=== PATIENT | female | born 1970 | race Caucasian/White ===

== ENCOUNTER 2018-01-09 17:28 | Emergency (ER) | payer SELFPAY ==
[~2018-01-09] VITALS: Ht 175.3 cm; Wt 84.1 kg
[~2018-01-09 17:28] MED LIST: ALBU6.7H
[2018-01-09] MEDS ORDERED: TAMO10 PO (17:43)
[2018-01-09] MEDS ORDERED: CLON0.5T12 PO (17:43)
[2018-01-09] MEDS ORDERED: LORazepam 2 MG/ML VIAL IVP ONE (18:30)
[2018-01-09 18:35] LABS: BASOPHILS % (AUTO) 0.3 % (0.0-2.0); EOSINOPHILS % (AUTO) 6.3 % (1.0-6.0); HEMATOCRIT 36.9 % (36-46); HEMOGLOBIN 13.1 g/dL (12.0-16.0); LYMPHOCYTES # (AUTO) 1.3 K/uL (1.0-4.8); LYMPHOCYTES % (AUTO) 30.8 % (22.0-44.0); MEAN CORPUSCULAR HEMOGLOBIN 31.6 pg (26.0-34.0); MEAN CORPUSCULAR HGB CONC 35.5 G/dL (31.0-37.0); MEAN CORPUSCULAR VOLUME 89 fL (80-100); MONOCYTES # (AUTO) 0.3 K/uL (0.1-1.0); MONOCYTES % (AUTO) 6.2 % (2.0-9.0); NEUTROPHILS # (AUTO) 2.4 K/uL (1.8-7.7); NEUTROPHILS % (AUTO) 56.4 % (40.0-70.0); PLATELET COUNT (AUTO) 169 K/uL (150-450); RED BLOOD CELL COUNT(AUTO) 4.14 MIL/uL (4.00-5.20); RED CELL DISTRIBUTION WIDTH 12.6 % (11.5-14.5)
[2018-01-09 18:45] LABS: ANION GAP 4 mmol/L (8-16); CALCIUM, TOTAL 8.9 mg/dL (8.8-10.5); CARBON DIOXIDE 29 mmol/L (22-29); CHLORIDE 107 mmol/L (98-107); CREATININE 0.79 mg/dL (0.60-1.30); GLOMERULAR FILTR. RATE CALC > 60 mL/min (>60); GLUCOSE,RANDOM 113 mg/dL (70-110); SODIUM SERUM 140 mmol/L (136-145); UREA NITROGEN, BLOOD 10 mg/dL (7-18)
[2018-01-09 18:52] LABS: ALANINE AMINOTRANSFERASE 140 U/L (12-78); ALBUMIN 3.3 g/dL (3.4-5.0); ALKALINE PHOSPHATASE 70 U/L (46-116); ASPARTATE AMINOTRANSFERASE 67 U/L (15-37); BILIRUBIN,TOTAL 0.3 mg/dL (0.1-1.0); TOTAL PROTEIN, SERUM 6.8 g/dL (6.4-8.2)
[2018-01-09 20:31] VITALS: BP 111/59
== END 2018-01-09 20:32 | disposition home or self-care (01) ==
LOC: EMS 17:28
DX: F41.9 Anxiety disorder, unspecified (principal); R79.89 Other specified abnormal findings of blood chemistry; R06.00 Dyspnea, unspecified; J45.909 Unspecified asthma, uncomplicated
CPT/HCPCS: 36415; 71045; 80053; 84484; 84703; 85025; 93005; 96374; 99285; J2060

== ENCOUNTER 2024-03-10 17:03 | Emergency (ER) | payer MEDICAID ==
[~2024-03-10] VITALS: Ht 157.5 cm; Wt 86.8 kg
[~2024-03-10 17:03] MED LIST changes: +ALBU18HF7; -ALBU6.7H; +CLON0.5T4 PO; +TAMO10TA45 PO
[2024-03-10 17:22] VITALS: TEMP 97.8
[2024-03-10 17:54] LABS: BASOPHILS % (AUTO) 0.3 % (0.0-2.0); EOSINOPHILS % (AUTO) 5.8 % (1.0-6.0); HEMATOCRIT 40.9 % (36-46); HEMOGLOBIN 13.7 g/dL (12.0-16.0); LYMPHOCYTES # (AUTO) 1.7 K/uL (1.0-4.8); LYMPHOCYTES % (AUTO) 30.2 % (22.0-44.0); MEAN CORPUSCULAR HEMOGLOBIN 29.4 pg (26.0-34.0); MEAN CORPUSCULAR HGB CONC 33.4 G/dL (31.0-37.0); MEAN CORPUSCULAR VOLUME 88 fL (80-100); MONOCYTES # (AUTO) 0.3 K/uL (0.1-1.0); MONOCYTES % (AUTO) 5.1 % (2.0-9.0); NEUTROPHILS # (AUTO) 3.4 K/uL (1.8-7.7); NEUTROPHILS % (AUTO) 58.6 % (40.0-70.0); PLATELET COUNT (AUTO) 307 K/uL (150-450); RED BLOOD CELL COUNT(AUTO) 4.65 MIL/uL (4.00-5.20); RED CELL DISTRIBUTION WIDTH 12.9 % (11.5-14.5); WHITE BLOOD COUNT (AUTO) 5.8 K/uL (4.5-11.0)
[2024-03-10 18:03] LABS: ANION GAP 3 mmol/L (8-16); CALCIUM, TOTAL 9.2 mg/dL (8.8-10.5); CARBON DIOXIDE 32 mmol/L (22-29); CHLORIDE 103 mmol/L (98-107); CREATININE 0.92 mg/dL (0.60-1.30); GLOMERULAR FILTR. RATE CALC > 60 mL/min (>60); GLUCOSE,RANDOM 116 mg/dL (70-110); SODIUM SERUM 138 mmol/L (136-145); UREA NITROGEN, BLOOD 22 mg/dL (7-18)
[2024-03-10 18:53] LABS: ALBUMIN 3.8 g/dL (3.4-5.0); BILIRUBIN,DIRECT 0.1 mg/dL (0.00-0.20); BILIRUBIN,TOTAL 0.6 mg/dL (0.1-1.0); TOTAL PROTEIN, SERUM 7.8 g/dL (6.4-8.2)
[2024-03-10] MEDS: ONDANSETRON HCL 4 MG/2 ML VIAL IVP ONE (19:24)
[2024-03-10] MEDS: HYDROmorphone HCL 2 MG/ML SYRINGE IVP ONE (19:24)
[2024-03-10 19:25] LABS: APPEARANCE,URINE HAZY (CLEAR); BILIRUBIN,URINE NEGATIVE (NEGATIVE); COLOR,URINE LIGHT YELLOW (YELLOW); GLUCOSE, URINE (UA) NEGATIVE (NEGATIVE); KETONES,URINE NEGATIVE (NEGATIVE); LEUKOCYTE ESTERASE ,URINE LARGE (NEGATIVE); NITRATE,URINE NEGATIVE (NEGATIVE); OCCULT BLOOD,URINE MODERATE (NEGATIVE); PROTEIN,URINE NEGATIVE (NEGATIVE); SPECIFIC GRAVITIY, URINE 1.014 (1.003-1.030); UROBILINOGEN,URINE <=1.0 mg/dL (<=1.0)
[2024-03-10] MEDS: SODIUM CHLORIDE 0.9% 2,000 ML IV ONE (19:26)
[2024-03-10 19:27] LABS: HCG,QUAL URINE NEGATIVE (NEGATIVE)
[2024-03-10 19:46] LABS: BACTERIA,URINE Few /HPF (None Seen); SQUAMOUS EPITHELIAL CELL,UR Few /LPF (None Seen)
[2024-03-10] MEDS: PHENAZOPYRIDINE HCL 100 MG TABLET PO ONE (20:19)
[2024-03-10] MEDS: CefTRIAXone 1 GM/DEXTROSE 50 ML IV ONE (20:20)
[2024-03-10] MEDS: HYDROCODONE/ACETAMINOPHEN 5-325 MG TABLET PO ONE (21:12)
[2024-03-10] MEDS ORDERED: CEPH-558 PO (21:15)
[2024-03-10] MEDS ORDERED: PHEN-674 PO (21:15)
[2024-03-10] MEDS ORDERED: HYDR-4072 PO (21:15)
[2024-03-10] MEDS ORDERED: IBUP-1554 PO (21:15)
[2024-03-10] MEDS ORDERED: POLY119P3 PO (21:20)
[2024-03-10 21:53] VITALS: BP 140/57; PULSE 74; RESP 18
== END 2024-03-10 21:55 | disposition home or self-care (01) ==
LOC: EMS 17:05
DX: N39.0 Urinary tract infection, site not specified (principal); M89.9 Disorder of bone, unspecified; J45.909 Unspecified asthma, uncomplicated; Z85.3 Personal history of malignant neoplasm of breast
CPT/HCPCS: 99285; 74176; 96365; 96375; 96361; 80048; 80076; 81001; 83690; 84703; 85025; 36415; 87086; 87186; J0696; J1170; J2405; J7030